=== PATIENT | female | born 1995 | race Caucasian/White ===

== ENCOUNTER 2021-05-31 14:43 | Emergency (ER) | payer OTHER ==
[~2021-05-31] VITALS: Ht 165.1 cm; Wt 75.7 kg
[2021-05-31 15:35] VITALS: BP 131/68
[2021-05-31] MEDS ORDERED: FLUORESCEIN SOD OPTH TEST STRIP OP ONE (16:15)
[2021-05-31] MEDS ORDERED: TETRACAINE HCL 0.5% OPTH(EYE) SOLN 4ML EACHEYE ONE (16:15)
== END 2021-05-31 16:50 | disposition home or self-care (01) ==
LOC: ER 14:43
DX: S05.02XA Injury of conjunctiva and corneal abrasion without foreign body, left eye, initial encounter (principal); X58.XXXA Exposure to other specified factors, initial encounter; Y93.89 Activity, other specified; Y92.89 Other specified places as the place of occurrence of the external cause; Y99.8 Other external cause status

== ENCOUNTER 2021-07-02 20:57 | Emergency (ER) | payer OTHER ==
[~2021-07-02] VITALS: Ht 165.1 cm; Wt 77.1 kg
[2021-07-02 22:12] VITALS: BP 148/69
[2021-07-04 11:12] LABS: Hepatitis B Surface Antigen Negative (Negative)
[2021-07-04 11:37] LABS: Hepatitis B Surface Antibody Positive
== END 2021-07-02 22:33 | disposition home or self-care (01) ==
LOC: ER 21:02
DX: S61.231A Puncture wound without foreign body of left index finger without damage to nail, initial encounter (principal); W46.0XXA Contact with hypodermic needle, initial encounter; Y93.89 Activity, other specified; Y92.89 Other specified places as the place of occurrence of the external cause; Y99.8 Other external cause status
CPT/HCPCS: 36415; 86703; 86706; 86803; 87340

== ENCOUNTER 2021-07-05 15:58 | Emergency (ER) | payer OTHER ==
[~2021-07-05] VITALS: Ht 165.1 cm; Wt 77.1 kg
[2021-07-05 18:04] VITALS: BP 151/98
== END 2021-07-05 18:10 | disposition home or self-care (01) ==
LOC: ER 15:58
DX: S61.231A Puncture wound without foreign body of left index finger without damage to nail, initial encounter (principal); W46.0XXA Contact with hypodermic needle, initial encounter; Y93.89 Activity, other specified; Y92.89 Other specified places as the place of occurrence of the external cause; Y99.8 Other external cause status